=== PATIENT | male | born 1995 | race Caucasian/White ===

== ENCOUNTER 2020-09-13 20:40 | Emergency (ER) | payer SELFPAY ==
[~2020-09-13] VITALS: Ht 172.7 cm; Wt 148.3 kg
[2020-09-13] MEDS ORDERED: LIDOCAINE VISC 2% SOLN 15 ML UDC ONE (20:57)
[2020-09-13] MEDS ORDERED: MAGNESIUM/ALUMINUM/SIMETHICONE 30 ML UDC ONE (20:57)
[2020-09-13] MEDS ORDERED: BELLADONNA ALK/PHENOBARBITAL 5 ML UDC ONE (20:57)
[2020-09-13] MEDS ORDERED: DONNATAL/LIDOCAINE/MAALOX 30 ML SUSP PO SCH (21:00)
[2020-09-13] MEDS ORDERED: MAGNESIUM/ALUMINUM/SIMETHICONE 30 ML UDC PO ONE (21:00)
[2020-09-13] MEDS ORDERED: BELLADONNA ALK/PHENOBARBITAL 5 ML UDC PO ONE (21:00)
[2020-09-13] MEDS ORDERED: LIDOCAINE VISC 2% SOLN 15 ML UDC PO ONE (21:00)
[2020-09-13] MEDS ORDERED: MAALOX MAXIMUM355 ML PO (21:03)
[2020-09-13] MEDS ORDERED: PANTOPRAZOLE SO40 MG PO (21:03)
== END 2020-09-13 23:00 | disposition home or self-care (01) ==
LOC: ER 21:02
DX: R07.9 Chest pain, unspecified (principal); R10.13 Epigastric pain; K29.70 Gastritis, unspecified, without bleeding
CPT/HCPCS: 93005; 99282